=== PATIENT | male | born 1970 | race Caucasian/White ===

== ENCOUNTER 2017-04-10 12:30 | Emergency (ER) | payer SELFPAY ==
[~2017-04-10 12:30] MED LIST: CEPH500C3 PO; LORT5TAB PO; NAPR550 PO; Z.0.NO CURRENT MEDS
[2017-04-10 12:32] VITALS: BP 148/76; PULSE 71; RESP 16; TEMP 98.6; O2SAT 99
--- NOTE | 2017-04-10 12:57 | PD ---
HPI Chief Complaint: Skin Problem Time Seen by Provider: 12:38 Travel History International Travel<30 days: No Contact w/Intl Traveler<30days: No Traveled to known affect area: No History of Present Illness HPI 46-year-old male presents to emergency department complaining of a lesion to his right lateral newsome for approximately 2 weeks. Patient states that he has been trying to take care of this on his own however, does not appear to be getting better at this point. States that he is been washing and keeping the wound clean with help of a friend at home whom also recommended patient come to the emergency department for evaluation. States this occurred when he was moving around some boxes approximately 2 weeks ago. States that he does have pain with walking that is relieved with rest. Patient has not seen primary care for this problem. Patient denies fever or chills. PFSH Past Medical History Medical History: Denies Significant Hx Tetanus Vaccination: < 5 Years Past Surgical History Surgical History: No Previous Surgery Social History Alcohol Use: Yes (OCCASSIONALLY) Tobacco Use: Yes (2 PACKS DAILY) Substance Use: No Allergies-Medications (Allergen,Severity, Reaction): Coded Allergies: No Known Allergies (Verified Allergy, Severe, 04/10/17) Reported Meds & Prescriptions Reported Meds & Active Scripts Active Bactrim DS (Sulfamethoxazole-Trimethoprim) 800-160 Mg Tab 1 Tab PO BID Review of Systems Except as stated in HPI: all other systems reviewed are Neg Physical Exam Narrative GENERAL: Well-nourished, well-developed patient. SKIN: Focused skin assessment warm/dry. HEAD: Normocephalic. EYES: No scleral icterus. No injection or drainage. NECK: Supple, trachea midline. No JVD or lymphadenopathy. MUSCULOSKELETAL: No cyanosis, or edema. Right lower extremity, lateral mid newsome- 1.5 cm x 1 cm lesion with round orders, 2-4 mm ulceration without fluctuance. Minimal exudate. Skin granulating well. BACK: Nontender without obvious deformity. No CVA tenderness. PSYCHIATRIC: No delusional thought processes. Reliable source. Data Data Last Documented VS Vital Signs Date Time Temp Pulse Resp B/P (MAP) Pulse Ox O2 Delivery O2 Flow Rate FiO2 04/10/17 12:32 98.6 71 16 148/76 (100) 99 Orders Orders Wound Care (04/10/17 12:58) Ed Discharge Order (04/10/17 12:58) [facility] Medical Decision Making Medical Screen Exam Complete: Yes Emergency Medical Condition: Yes Differential Diagnosis Abscess versus cellulitis versus impetigo versus erysipelas versus insect bite Narrative Course 46-year-old male presents to emergency department complaining of a lesion to his right lateral newsome for approximately 2 weeks. Patient states that he has been trying to take care of this on his own however, does not appear to be getting better at this point. States that he is been washing and keeping the wound clean with help of a friend at home whom also recommended patient come to the emergency department for evaluation. States this occurred when he was moving around some boxes approximately 2 weeks ago. States that he does have pain with walking that is relieved with rest. Patient has not seen primary care for this problem. Patient denies fever or chills. Vital signs stable. Physical exam- consistent with a status post abscess versus cellulitis. I irrigated and scrubbed the wound with iodine and saline. Again tissue granulation appears healthy. No evidence of infectious spread or lymphangial pathic spread. No expression exudate. Patient is reliable historian and appears to be able to take care of his wound. I still recommended he follow up with wound care, likely recommended by his primary care physician. I advised patient to take all antibiotics as prescribed and return to emergency department if worsening or persistent symptoms. Procedures Procedure Narrative Right lower extremity wound- area irrigated with normal saline, iodine scrub. It appears that the Diagnosis Primary Impression: Abscess Referrals: [facility] Additional Instructions: Follow-up with a primary care physician within 2-3 days. Take medications as prescribed. I recommend wound care which may be initiated 3 primary care physician. If her symptoms persist or worsen return to the emergency department. He may remove the packing and dressing in 1-2 days. You may redress the wound using gauze and antibiotic ointment. Scripts Sulfamethoxazole-Trimethoprim (Bactrim DS) 800-160 Mg Tab 1 TAB PO BID for Infection, #20 TAB 0 Refills Prov: Joanne Abdullahi MD 04/10/17 Disposition: 01 DISCHARGE HOME Condition: Stable Lisa Ornelas Apr 10, 2017 12:57
[2017-04-10] MEDS ORDERED: BACT800T5 PO (12:58)
== END 2017-04-10 13:20 | disposition home or self-care (01) ==
LOC: NEPK 12:30
DX: L02.415 Cutaneous abscess of right lower limb (principal)
CPT/HCPCS: 99283